=== PATIENT | male | born 1965 | race Caucasian/White ===

== ENCOUNTER 2016-06-02 11:22 | Inpatient (IN) | payer OTHER ==
[2016-06-02 16:34] VITALS: BMI 28.3
--- NOTE | 2016-06-02 16:56 | HP ---
CIWA Score - CIWA Score Nausea/Vomitin Muscle Tremors: 3 Anxiety: 3 Agitation: 3 Paroxysmal Sweats: 2 Orientation: 0-Oriented Tacttile Disturbances: 2-Mild Itch/Numbness/Burn Auditory Disturbances: 2-Mild Harshness/Frighten Visual Disturbances: 2-Mild Sensitivity Headache: 2-Mild CIWA-Ar Total Score: 22 Admission ROS BHS - HPI Chief Complaint: i need help to stop drinking alcohol Allergies/Adverse Reactions: Allergies Allergy/AdvReac Type Severity Reaction Status Date / Time No Known Allergies Allergy Verified 06/02/16 16:52 History of Present Illness: this 50 years old male with alcohol dependence,withdrawal symptom,last detox , last detox [facility] 08/26/15 to 08/29/15 syncope mmtp 20 mgs/day,[facility] last medicated today old mi s/p angioplasty with stent nicotine dependence anxiety and depression longest period of sobriety 3 years - Ebola screening Have you traveled outside of the country in the last 21 days: No Have you had contact with anyone from an Ebola affected area: No Have you been sick,other than usual withdrawal symptoms: No Do you have a fever: No - Review of Systems Constitutional: Loss of Appetite, Malaise, Night Sweats, Changes in sleep, Weakness EENT: reports: Nose Congestion Respiratory: reports: No Symptoms reported Cardiac: reports: Palpitations GI: reports: Diarrhea, Nausea, Vomiting, Abdominal cramping : reports: No Symptoms Reported Musculoskeletal: reports: Back Pain, Muscle Pain Integumentary: reports: Dryness Neuro: reports: Headache, Tremors Endocrine: reports: No Symptoms Reported Hematology: reports: No Symptoms Reported Psychiatric: reports: Anxious, Depressed Patient History - Patient Medical History Hx Anemia: No Hx Asthma: No Hx Chronic Obstructive Pulmonary Disease (COPD): No Hx Cancer: No Hx Cardiac Disorders: Yes (S/P ANGIOPLASTY WITH STENT AT [facility] 04/20) Hx Congestive Heart Failure: No Hx Hypertension: Yes (on meds.) Hx Hypercholesterolemia: Yes (ON MED) Hx Pacemaker: No HX Cerebrovascular Accident: No Hx Seizures: No Hx Dementia: No Hx Diabetes: No Hx Gastrointestinal Disorders: No Hx Liver Disease: No Hx Genitourinary Disorders: No Hx Sexually Transmitted Disorders: No Hx Renal Disease (ESRD): No Hx Thyroid Disease: No Hx Human Immunodeficiency Virus (HIV): No (05/20 NEGATIVE) Hx Hepatitis C: No Hx Depression: Yes (ANXIETY) Hx Suicide Attempt: No Hx Bipolar Disorder: No Hx Schizophrenia: No Other Medical History: NO SUICIDAL,NO HOMICIDAL - Patient Surgical History Past Surgical History: Yes Hx Neurologic Surgery: No Hx Cataract Extraction: No Hx Cardiac Surgery: Yes (STENTx 1 ) Hx Lung Surgery: Yes (CHEST TUBE R LUNG.SPONTANEOUS PNTX) Hx Breast Surgery: No Hx Breast Biopsy: No Hx Abdominal Surgery: No Hx Appendectomy: No Hx Cholecystectomy: No Hx Genitourinary Surgery: No Hx Section: No Hx Orthopedic Surgery: No Anesthesia Reaction: No - PPD History Previous Implant?: Yes Documented Results: Negative w/o proof Implanted On Prior [facility] Admission?: Yes Date: 04/05/15 Results: 0 mm PPD to be Administered?: Yes - Smoking Cessation Smoking history: Current every day smoker Have you smoked in the past 12 months: Yes Aproximately how many cigarettes per day: 10 Cigars Per Day: 0 Hx Chewing Tobacco Use: No Initiated information on smoking cessation: Yes 'Breaking Loose' booklet given: 06/02/16 - Substance & Tx. History Hx Alcohol Use: Yes Hx Substance Use: No Substance Use Type: Alcohol Hx Substance Use Treatment: Yes ([facility] 08/26/15 TO 08/29/15) Family Disease History - Family Disease History Family Disease History: Diabetes: Mother, Heart Disease: Father (CHF,), Brother (CAD) Admission Physical Exam S - Vital Signs Vital Signs: Vital Signs - 24 hr 06/02/16 16:32 Temperature 94.4 F L Pulse Rate 84 Respiratory 18 Rate Blood Pressure 142/90 - Physical General Appearance: Yes: Moderate Distress, Tremorous, Irritable, Sweating, Anxious HEENTM: Yes: Hearing grossly Normal, Normal ENT Inspection, Pharynx Normal Respiratory: Yes: Lungs Clear, Surgical Scar (S/P THORACOTOMY WITH CHEST TUBE) Neck: Yes: Supple, Trachea in good position Breast: Yes: Within Normal Limits Cardiology: Yes: Regular Rhythm, Regular Rate, S1, S2 Abdominal: Yes: Within Normal Limits, Normal Bowel Sounds, Non Tender, Flat, Soft Genitourinary: Yes: Within Normal Limits Musculoskeletal: Yes: Back pain, Muscle Pain Extremities: Yes: Within Normal Limits, Normal Range of Motion, Tremors, Other ( EDEMA OF LEGS) Neurological: Yes: broth setter II-XII NML intact, Fully Oriented, Alert, Motor Strength 5/5 Integumentary: Yes: Dry Lymphatic: Yes: Within Normal Limits - Diagnostic (1) Alcohol dependence with uncomplicated withdrawal Current Visit: No Status: Acute (2) Methadone maintenance therapy patient Current Visit: No Status: Acute (3) Nicotine dependence Current Visit: No Status: Acute Qualifiers: Nicotine product type: cigarettes Substance use status: uncomplicated Qualified Code(s): F17.210 - Nicotine dependence, cigarettes, uncomplicated (4) Spontaneous pneumothorax Current Visit: No Status: Acute (5) CAD (coronary artery disease) Current Visit: No Status: Chronic Qualifiers: Coronary Disease-Associated Artery/Lesion type: [place] artery [place] vs. transplanted heart: [place] heart Associated angina: angina presence unspecified Qualified Code(s): I25.10 - Atherosclerotic heart disease of [place] coronary artery without angina pectoris (6) S/P angioplasty with stent Current Visit: No Status: Chronic (7) GERD (gastroesophageal reflux disease) Current Visit: Yes Status: Acute Cleared for Admission S - Detox or Rehab [facility] Level of Care: Medically Managed Detox Regimen/Protocol: Librium [facility] Breath Alcohol Content Breath Alcohol Content: 0.170 Urine Drug Screen - Results Drug Screen Negative: No Urine Drug Screen Results: BZO-Benzodiazepines, MTD-Methadone
[2016-06-02] MEDS ORDERED: ACETAMINOPHEN 325 MG TABLET (FP) PO PRN (17:23)
[2016-06-02] MEDS ORDERED: MAGNESIUM HYDROX 2400MG/30ML ORAL SUSPENSION 30 ML CUP PO PRN (17:23)
[2016-06-02] MEDS ORDERED: guaiFENesin/D-METHORPHAN HB 10 ML UNIT-DOSE CUPS PO PRN (17:23)
[2016-06-02] MEDS ORDERED: LOPERAMIDE HCL 2 MG CAPSULE PO PRN (17:23)
[2016-06-02] MEDS ORDERED: MENTHOL/PHENOL 1 EACH UD MM PRN (17:23)
[2016-06-02] MEDS ORDERED: MAGNESIUM CITRATE 300 ML BOTTLE PO PRN (17:23)
[2016-06-02] MEDS ORDERED: chlordiazePOXIDE HCL 25 MG CAPSULE PO PRN (17:23)
[2016-06-02] MEDS ORDERED: IBUPROFEN 400 MG TABLET (FP) PO PRN (17:23)
[2016-06-02] MEDS ORDERED: MAG HYDROX/AL HYDROX/SIMETH 30 ML UNIT-DOSE CUP PO PRN (17:23)
[2016-06-02] MEDS ORDERED: P-EPHED 60MG/TRIPROLIDI 2.5MG TABLET PO PRN (17:23)
[2016-06-02] MEDS ORDERED: diphenhydrAMINE HCL 50 MG CAPSULE PO PRN (17:23)
[2016-06-02] MEDS: chlordiazePOXIDE HCL 25 MG CAPSULE PO ONE ×2 (18:09→18:12)
[2016-06-02] MEDS: NICOTINE 21 MG/24 HOURS TOPICAL PATCH TD SCH (18:23)
[2016-06-02] MEDS: chlordiazePOXIDE HCL 25 MG CAPSULE PO SCH (22:18)
[2016-06-02] MEDS: CAPTOPRIL 12.5 MG PO SCH (22:19)
[2016-06-02] MEDS: METOPROLOL TARTRATE 25 MG TABLET (FP) PO SCH (22:19)
[2016-06-02] MEDS: THIAMINE HCL 100 MG TABLET (FP) PO SCH (22:19)
[2016-06-02] MEDS: ATORVASTATIN CA 40 MG TABLET (FP) PO SCH (22:19)
[2016-06-03] MEDS: chlordiazePOXIDE HCL 25 MG CAPSULE PO SCH ×4 (06:21→22:10)
[2016-06-03] MEDS ORDERED: METHADONE HCL 10 MG TABLET PO ONE (08:41)
[2016-06-03] MEDS: PRENATAL VITAMINS W/ FOLIC ACID TABLET (FP) PO SCH (10:17)
[2016-06-03] MEDS: ASPIRIN 81 MG CHEWABLE TABLETS PO SCH (10:18)
[2016-06-03] MEDS: RANITIDINE HCL 150 MG TABLET (FP) PO SCH (10:18)
[2016-06-03] MEDS: METOPROLOL TARTRATE 25 MG TABLET (FP) PO SCH ×2 (10:18→22:10)
[2016-06-03] MEDS: CAPTOPRIL 12.5 MG PO SCH ×2 (10:19→22:11)
[2016-06-03] MEDS: PRASUGREL HCL 10 MG TAB PO SCH (10:19)
[2016-06-03] MEDS: NICOTINE 21 MG/24 HOURS TOPICAL PATCH TD SCH (10:20)
[2016-06-03 10:21] LABS: MCH 33.7 pg (25.7-33.7); MCHC 33.8 g/dl (32.0-35.9); MEAN CELL VOLUME 99.8 fl (80-96); MEAN PLT VOLUME 8.4 fl (7.5-11.1); PLATELET COUNT 183 K/MM3 (134-434); RDW 13.4 % (11.9-15.9); WHITE BLOOD COUNT 8.3 K/mm3 (4.0-10.0)
[2016-06-03 11:01] LABS: ALBUMIN 3.2 g/dl (3.4-5.0); ANION GAP 7 (8-16); CALCIUM 8.6 mg/dL (8.5-10.1); CO2 33 mmol/L (21-32); CREATININE 0.8 mg/dL (0.7-1.3); GLUCOSE,RANDOM 92 mg/dL (74-106); SGOT/AST 60 U/L (15-37); SGPT/ALT 43 U/L (12-78)
[2016-06-03 11:03] LABS: ALK PHOS 72 U/L (45-117); BILIRUBIN,TOTAL 0.5 mg/dL (0.2-1.0); TOT PROT 6.2 g/dl (6.4-8.2)
--- NOTE | 2016-06-03 11:11 | PN ---
S CIWA - CIWA Score Nausea/Vomitin Muscle Tremors: 3 Anxiety: 3 Agitation: 3 Paroxysmal Sweats: 3 Orientation: 0-Oriented Tacttile Disturbances: 1-Very Mild Itch/Numbness Auditory Disturbances: 0-None Visual Disturbances: 0-None Headache: 0-None Present CIWA-Ar Total Score: 16 BHS Progress Note (SOAP) Subjective: interrupted sleep, sweats, diarrhea, Objective: 06/03/16 11:10 Vital Signs Temperature 98.5 F 06/03/16 06:36 Pulse Rate 71 06/03/16 10:13 Respiratory Rate 16 06/03/16 10:13 Blood Pressure 126/90 06/03/16 10:13 O2 Sat by Pulse Oximetry (%) Laboratory Tests 06/03/16 07:00 WBC 8.3 RBC 4.17 Hgb 14.1 Hct 41.6 MCV 99.8 H MCHC 33.8 RDW 13.4 Plt Count 183 D MPV 8.4 pt aox3 in nad ambulating Assessment: 06/03/16 11:10 withdrawal sx's cad no cp or sob Plan: cont. detox increase fluids imodium prn
--- NOTE | 2016-06-03 15:42 | CONSULT ---
[facility] Psychiatric Consult - Data Date of interview: 06/03/16 Admission source: [facility] Identifying data: Another admission to [facility] for this 50 y/o male seeking detox treatment for alcohol and opioid dependence.Patient is ,a father of one,domiciled,unemployed and supported on SSI benefits. Substance Abuse History: - Smoking Cessation. Smoking history: Current every day smoker. Have you smoked in the past 12 months: Yes. Aproximately how many cigarettes per day: 10. Cigars Per Day: 0. Hx Chewing Tobacco Use: No. Initiated information on smoking cessation: Yes. 'Breaking Loose' booklet given : 06/02/16. - Substance & Tx. History. Hx Alcohol Use: Yes. Hx Substance Use : No. Substance Use Type: Alcohol. Hx Substance Use Treatment: Yes ([facility] 08/25 TO 08/29/15). Confirmed by patient. Medical History: History of myocardial infarction in 2006 (angioplasty with stents),spontaneous pneumothorax in 2013,coronary artery disease and hypertension. Psychiatric History: No history of psychiatric hospitalizations.Prescribed paxil 20 mg/day by his primary care physician (declined to maintain contact with his psychiatrist).Mr Avila attends a MMTP program at [facility] (20 mg/day).He indicates that he is enrolled in a new drug program, [facility] located in [place], [place].No history of suicide attempts. Physical/Sexual Abuse/Trauma History: Patient denies. Additional Comment: Urine Drug Screen Results: BZO-Benzodiazepines, MTD- Methadone.Noted. Mental Status Exam - Mental Status Exam Alert and Oriented to: Time, Place, Person Cognitive Function: Good Patient Appearance: Well Groomed Mood: Hopeful, Euthymic Affect: Appropriate, Normal Range Patient Behavior: Appropriate, Cooperative Speech Pattern: Clear, Appropriate Voice Loudness: Normal Thought Process: Goal Oriented Thought Disorder: Not Present Hallucinations: Denies Suicidal Ideation: Denies Homicidal Ideation: Denies Insight/Judgement: Fair Sleep: Poorly, Difficulty falling asleep Appetite: Good Muscle strength/Tone: Normal Gait/Station: Normal Psychiatric Findings - Problem List ([place] 1, 2,3) (1) Alcohol dependence with uncomplicated withdrawal Current Visit: Yes Status: Acute (2) Opioid dependence with withdrawal Current Visit: Yes Status: Acute (3) Opioid dependence on agonist therapy Current Visit: Yes Status: Acute (4) Nicotine dependence Current Visit: Yes Status: Acute Qualifiers: Nicotine product type: cigarettes Substance use status: uncomplicated Qualified Code(s): F17.210 - Nicotine dependence, cigarettes, uncomplicated (5) Substance induced mood disorder Current Visit: Yes Status: Acute (6) MDD (major depressive disorder) Current Visit: Yes Status: Chronic (7) GERD (gastroesophageal reflux disease) Current Visit: Yes Status: Chronic (8) CAD (coronary artery disease) Current Visit: Yes Status: Chronic Qualifiers: Coronary Disease-Associated Artery/Lesion type: [place] artery [place] vs. transplanted heart: [place] heart Associated angina: angina presence unspecified Qualified Code(s): I25.10 - Atherosclerotic heart disease of [place] coronary artery without angina pectoris (9) S/P angioplasty with stent Current Visit: Yes Status: Chronic (10) Insomnia Current Visit: Yes Status: Acute - Initial Treatment Plan Initial Treatment Plan: Psychoeducation.Detoxification.Zolpidem 5 mg po hs prn.Patient made aware of risk of parasomnias/sedation in the morning.He agrees with this careplan.
[2016-06-03] MEDS: hydrOXYzine PAMOATE 50 MG CAPSULE (FP) PO PRN ×2 (17:24→22:14)
[2016-06-03 20:24] LABS: URINE APPEARANCE CLEAR; URINE BILIRUBIN NEGATIVE (NEGATIVE); URINE BLOOD NEGATIVE (NEGATIVE); URINE COLOR YELLOW; URINE GLUCOSE (UA) NEGATIVE (NEGATIVE); URINE KETONE NEGATIVE (NEGATIVE); URINE LEUK ESTERASE NEGATIVE (NEGATIVE); URINE NITRITE NEGATIVE (NEGATIVE); URINE PROTEIN NEGATIVE (NEGATIVE); URINE UROBILINOGEN NEGATIVE E.U./dl (0.2-1.0)
[2016-06-03] MEDS: ATORVASTATIN CA 40 MG TABLET (FP) PO SCH (22:10)
[2016-06-03] MEDS: THIAMINE HCL 100 MG TABLET (FP) PO SCH (22:10)
[2016-06-04] MEDS: chlordiazePOXIDE HCL 25 MG CAPSULE PO SCH ×3 (05:21→17:00)
[2016-06-04] MEDS: METHADONE HCL 10 MG TABLET PO SCH (05:22)
[2016-06-04] MEDS ORDERED: NAPHAZOLINE/PHENIRAMINE OPHTHALMIC 15 ML BOTTLE OU PRN (08:35)
--- NOTE | 2016-06-04 10:23 | PN ---
S CIWA - CIWA Score Nausea/Vomitin Muscle Tremors: 3 Anxiety: 2 Agitation: 2 Paroxysmal Sweats: 1-Minimal Palms Moist Orientation: 0-Oriented Tacttile Disturbances: 1-Very Mild Itch/Numbness Auditory Disturbances: 1-Very Mild Visual Disturbances: 1-Very Mild Sensitivity Headache: 2-Mild CIWA-Ar Total Score: 16 S Progress Note (SOAP) Subjective: ALERT,IRRITABLE,ANXIOUS,INTERRUPTED SLEEP,TREMOR,PAIN IN THE BODY Objective: 06/04/16 10:22 Vital Signs Temperature 98.2 F 06/04/16 10:13 Pulse Rate 71 06/04/16 10:13 Respiratory Rate 18 06/04/16 10:13 Blood Pressure 118/79 06/04/16 10:13 O2 Sat by Pulse Oximetry (%) Laboratory Last Values WBC 8.3 K/mm3 (4.0-10.0) 06/03/16 07:00 RBC 4.17 M/mm3 (4.00-5.60) 06/03/16 07:00 Hgb 14.1 GM/dL (11.7-16.9) 06/03/16 07:00 Hct 41.6 % (35.4-49) 06/03/16 07:00 MCV 99.8 fl (80-96) H 06/03/16 07:00 MCHC 33.8 g/dl (32.0-35.9) 06/03/16 07:00 RDW 13.4 % (11.9-15.9) 06/03/16 07:00 Plt Count 183 K/MM3 (134-434) D 06/03/16 07:00 MPV 8.4 fl (7.5-11.1) 06/03/16 07:00 Sodium 144 mmol/L (136-145) 06/03/16 07:00 Potassium 4.5 mmol/L (3.5-5.1) D 06/03/16 07:00 Chloride 104 mmol/L (98-107) 06/03/16 07:00 Carbon Dioxide 33 mmol/L (21-32) H 06/03/16 07:00 Anion Gap 7 (8-16) L 06/03/16 07:00 BUN 11 mg/dL (7-18) D 06/03/16 07:00 Creatinine 0.8 mg/dL (0.7-1.3) 06/03/16 07:00 Creat Clearance w eGFR > 60 (>60) 06/03/16 07:00 Random Glucose 92 mg/dL (74-106) 06/03/16 07:00 Calcium 8.6 mg/dL (8.5-10.1) 06/03/16 07:00 Total Bilirubin 0.5 mg/dL (0.2-1.0) D 06/03/16 07:00 AST 60 U/L (15-37) H D 06/03/16 07:00 ALT 43 U/L (12-78) D 06/03/16 07:00 Alkaline Phosphatase 72 U/L (45-117) 06/03/16 07:00 Total Protein 6.2 g/dl (6.4-8.2) L 06/03/16 07:00 Albumin 3.2 g/dl (3.4-5.0) L 06/03/16 07:00 Urine Color Yellow 06/03/16 19:30 Urine Appearance Clear 06/03/16 19:30 Urine pH 7.0 (5.0-8.0) D 06/03/16 19:30 Ur Specific [place] 1.021 (1.001-1.035) 06/03/16 19:30 Urine Protein Negative (NEGATIVE) 06/03/16 19:30 Urine Glucose (UA) Negative (NEGATIVE) 06/03/16 19:30 Urine Ketones Negative (NEGATIVE) 06/03/16 19:30 Urine Blood Negative (NEGATIVE) 06/03/16 19:30 Urine Nitrite Negative (NEGATIVE) 06/03/16 19:30 Urine Bilirubin Negative (NEGATIVE) 06/03/16 19:30 Urine Urobilinogen Negative E.U./dl (0.2-1.0) 06/03/16 19:30 Ur Leukocyte Esterase Negative (NEGATIVE) 06/03/16 19:30 RPR Titer Nonreactive (NONREACTIVE) 06/03/16 07:00 Assessment: 06/04/16 10:23 WITHDRAWAL SYMPTOM Plan: CONTINUE DETOX
[2016-06-04] MEDS: METOPROLOL TARTRATE 25 MG TABLET (FP) PO SCH ×2 (10:25→22:34)
[2016-06-04] MEDS: PRENATAL VITAMINS W/ FOLIC ACID TABLET (FP) PO SCH (10:25)
[2016-06-04] MEDS: PARoxetine HCL 20 MG TABLET (FP) PO SCH (10:25)
[2016-06-04] MEDS: CAPTOPRIL 12.5 MG PO SCH ×2 (10:26→22:35)
[2016-06-04] MEDS: ASPIRIN 81 MG CHEWABLE TABLETS PO SCH (10:26)
[2016-06-04] MEDS: RANITIDINE HCL 150 MG TABLET (FP) PO SCH (10:27)
[2016-06-04] MEDS: NICOTINE 21 MG/24 HOURS TOPICAL PATCH TD SCH (10:30)
--- NOTE | 2016-06-04 11:58 | EKG ---
Test Reason : Blood Pressure : / mmHG Vent. Rate : 087 BPM Atrial Rate : 087 BPM P-R Int : 136 ms QRS Dur : 100 ms QT Int : 382 ms P-R-T Axes : 035 038 047 degrees QTc Int : 459 ms NORMAL SINUS RHYTHM POOR DATA QUALITY, INTERPRETATION MAY BE ADVERSELY AFFECTED Confirmed by SIMON CAMPBELL MD ([id number]) on 06/04/2016 11:58:15 AM Referred By: Miles Lazaro Confirmed By:SIMON CAMPBELL MD
[2016-06-04] MEDS: ARTIFICIAL TEARS (POLYVINYL ALCOHOL 1.4%) OPTH DROPS OU SCH ×2 (13:14→22:35)
[2016-06-04] MEDS: PRASUGREL HCL 10 MG TAB PO SCH (14:37)
[2016-06-04] MEDS: chlordiazePOXIDE 5 MG CAPSULE PO SCH (22:34)
[2016-06-04] MEDS: THIAMINE HCL 100 MG TABLET (FP) PO SCH (22:34)
[2016-06-04] MEDS: ATORVASTATIN CA 40 MG TABLET (FP) PO SCH (22:34)
[2016-06-04] MEDS: hydrOXYzine PAMOATE 50 MG CAPSULE (FP) PO PRN (22:38)
[2016-06-05] MEDS: hydrOXYzine PAMOATE 50 MG CAPSULE (FP) PO PRN (03:25)
[2016-06-05] MEDS: chlordiazePOXIDE 5 MG CAPSULE PO SCH ×3 (05:12→17:40)
[2016-06-05] MEDS: METHADONE HCL 10 MG TABLET PO SCH (05:13)
--- NOTE | 2016-06-05 09:52 | PN ---
S Progress Note (SOAP) Subjective: ALERT,IRRITABLE,INTERRUPTED SLEEP Objective: 06/05/16 09:51 Vital Signs Temperature 98.1 F 06/05/16 09:50 Pulse Rate 71 06/05/16 09:50 Respiratory Rate 16 06/05/16 09:50 Blood Pressure 118/72 06/05/16 09:50 O2 Sat by Pulse Oximetry (%) Assessment: 06/05/16 09:52 WITHDRAWAL SYMPTOM Plan: CONTINUE DETOX,DISCHARGE IN AM
[2016-06-05] MEDS: RANITIDINE HCL 150 MG TABLET (FP) PO SCH (10:15)
[2016-06-05] MEDS: METOPROLOL TARTRATE 25 MG TABLET (FP) PO SCH ×2 (10:15→22:20)
[2016-06-05] MEDS: PARoxetine HCL 20 MG TABLET (FP) PO SCH (10:15)
[2016-06-05] MEDS: PRENATAL VITAMINS W/ FOLIC ACID TABLET (FP) PO SCH (10:15)
[2016-06-05] MEDS: ASPIRIN 81 MG CHEWABLE TABLETS PO SCH (10:15)
[2016-06-05] MEDS: PRASUGREL HCL 10 MG TAB PO SCH (10:16)
[2016-06-05] MEDS: NICOTINE 21 MG/24 HOURS TOPICAL PATCH TD SCH (10:16)
[2016-06-05] MEDS: CAPTOPRIL 12.5 MG PO SCH ×2 (10:16→22:20)
[2016-06-05] MEDS: ARTIFICIAL TEARS (POLYVINYL ALCOHOL 1.4%) OPTH DROPS OU SCH ×2 (10:17→22:57)
[2016-06-05] MEDS: chlordiazePOXIDE HCL 10 MG CAPSULE PO SCH (22:20)
[2016-06-05] MEDS: ATORVASTATIN CA 40 MG TABLET (FP) PO SCH (22:20)
[2016-06-05] MEDS: THIAMINE HCL 100 MG TABLET (FP) PO SCH (22:22)
[2016-06-06] MEDS: hydrOXYzine PAMOATE 50 MG CAPSULE (FP) PO PRN (01:36)
[2016-06-06] MEDS: chlordiazePOXIDE HCL 10 MG CAPSULE PO SCH (04:35)
[2016-06-06] MEDS: METHADONE HCL 10 MG TABLET PO SCH (05:16)
[2016-06-06 05:46] VITALS: BP 109/63; PULSE 63; TEMP 96.1
--- NOTE | 2016-06-06 08:41 | PN ---
S Progress Note (SOAP) Subjective: ALERT,NO COMPLAINT Objective: 06/06/16 08:40 Vital Signs Temperature 96.1 F L 06/06/16 05:45 Pulse Rate 63 06/06/16 05:45 Respiratory Rate 18 06/06/16 05:45 Blood Pressure 109/63 06/06/16 05:45 O2 Sat by Pulse Oximetry (%) Assessment: 06/06/16 08:40 DETOX COMPLETED,NO WITHDRAWAL SYMPTOM Plan: DISCHARGE TODAY,FOLLOW UP WITH AFTER CARE PROGRAM ARRANGEMENT
--- NOTE | 2016-06-06 08:46 | DS ---
[facility] Detox Discharge Summary Admission Date: 06/02/16 Discharge Date: 06/06/16 - History Present History: Alcohol Dependence, MMTP Additional Comments: FOLLOW UP WITH AFTER CARE PROGRAM ARRANGEMENT AND PMD FOR MEDICAL PROBLEM Pertinent Past History: GERD CAD S/P ANGIOPLASTY WITH STENT SPONTANEOUS PNEUMOTHORAX RIGHT - Physical Exam Results Vital Signs: Vital Signs Temperature 96.1 F L 06/06/16 05:45 Pulse Rate 63 06/06/16 05:45 Respiratory Rate 18 06/06/16 05:45 Blood Pressure 109/63 06/06/16 05:45 O2 Sat by Pulse Oximetry (%) - Treatment Hospital Course: Detox Protocol Followed, Detoxed Safely, Responded well, Discharged Condition Good, Rehab Referral Accepted Patient has Accepted a Rehab Referral to: [facility] - Medication Discharge Medications: Ambulatory Orders Aspirin [ASA -] 81 mg PO DAILY 04/03/15 Atorvastatin Ca [Lipitor] 40 mg PO HS 04/03/15 Captopril 12.5 mg PO BID 04/03/15 Metoprolol Tartrate [Lopressor -] 25 mg PO BID 04/03/15 Paroxetine HCl [Paxil -] 20 mg PO DAILY #30 tablet 04/04/15 Armodafinil [Nuvigil] 200 mg PO DAILY 06/02/16 Stanley-3S/Dha/Epa/Fish Oil [Fish Oil [place]-3 Softgel] 1 each PO DAILY 06/02/16 Prasugrel HCl [Effient] 10 mg PO DAILY 06/02/16 Ranitidine [Zantac -] 150 mg PO DAILY 06/02/16 Testosterone [Androgel] 25 mg TD DAILY 06/02/16 Vitamin B Complex [Super B-50 Complex] 1 each PO DAILY 06/02/16 Paroxetine HCl [Paxil] 20 mg PO DAILY #30 tablet 06/03/16 - Diagnosis (1) Alcohol dependence with uncomplicated withdrawal Current Visit: Yes Status: Acute (2) Methadone maintenance therapy patient Current Visit: No Status: Acute (3) Nicotine dependence Current Visit: Yes Status: Acute Qualifiers: Nicotine product type: cigarettes Substance use status: uncomplicated Qualified Code(s): F17.210 - Nicotine dependence, cigarettes, uncomplicated (4) Spontaneous pneumothorax Current Visit: No Status: Acute (5) CAD (coronary artery disease) Current Visit: Yes Status: Chronic Qualifiers: Coronary Disease-Associated Artery/Lesion type: [place] artery [place] vs. transplanted heart: [place] heart Associated angina: angina presence unspecified Qualified Code(s): I25.10 - Atherosclerotic heart disease of [place] coronary artery without angina pectoris (6) S/P angioplasty with stent Current Visit: Yes Status: Chronic (7) GERD (gastroesophageal reflux disease) Current Visit: Yes Status: Chronic - AMA Did Patient Leave Against Medical Advice: No
[2016-06-06] MEDS: ASPIRIN 81 MG CHEWABLE TABLETS PO SCH (09:18)
[2016-06-06] MEDS: ARTIFICIAL TEARS (POLYVINYL ALCOHOL 1.4%) OPTH DROPS OU SCH (09:18)
[2016-06-06] MEDS: PRENATAL VITAMINS W/ FOLIC ACID TABLET (FP) PO SCH (09:19)
[2016-06-06] MEDS: CAPTOPRIL 12.5 MG PO SCH (09:19)
[2016-06-06] MEDS: PRASUGREL HCL 10 MG TAB PO SCH (09:19)
[2016-06-06] MEDS: PARoxetine HCL 20 MG TABLET (FP) PO SCH (09:19)
[2016-06-06] MEDS: RANITIDINE HCL 150 MG TABLET (FP) PO SCH (09:19)
[2016-06-06] MEDS: METOPROLOL TARTRATE 25 MG TABLET (FP) PO SCH (09:19)
[2016-06-06] MEDS: NICOTINE 21 MG/24 HOURS TOPICAL PATCH TD SCH (09:23)
== END 2016-06-06 09:30 | disposition home or self-care (01) | DRG 773 ==
LOC: YASAS 11:22 → Y6N 17:32
PROVIDERS: ADMIT Internal Medicine Addiction Medicine; ATTEND Internal Medicine Addiction Medicine
PROC: HZ2ZZZZ Detoxification Services for Substance Abuse Treatment (ICD-10-PCS; principal; 2016-06-02)
DX: F10.230 Alcohol dependence with withdrawal, uncomplicated (principal); F11.20 Opioid dependence, uncomplicated; F17.210 Nicotine dependence, cigarettes, uncomplicated; F33.9 Major depressive disorder, recurrent, unspecified; F19.24 Other psychoactive substance dependence with psychoactive substance-induced mood disorder; I10 Essential (primary) hypertension; I25.2 Old myocardial infarction; I25.10 Atherosclerotic heart disease of native coronary artery without angina pectoris; K21.9 Gastro-esophageal reflux disease without esophagitis; G47.00 Insomnia, unspecified; Z95.5 Presence of coronary angioplasty implant and graft; Z87.09 Personal history of other diseases of the respiratory system
CPT/HCPCS: 36415; 80053; 81003; 85027; 86593; 93005; 93010

== ENCOUNTER 2016-06-09 13:58 | Inpatient (IN) | payer OTHER ==
[2016-06-09 15:56] VITALS: BMI 28.9
--- NOTE | 2016-06-09 17:40 | HP ---
[facility] Rehab Assess/Revision - Admission History Admitted to Rehab from: [facility] [place] Date of Admission to Rehab: 06/09/16 - Vital signs Vital Signs: Vital Signs Period Temp Pulse Resp BP Sys/Finn Pulse Ox Last 24 Hr 96.0 F 83 20 133/75 - Findings Detox History & Physical reviewed: Yes Concur with findings: Yes Comments/Additional Findings: Hx. of CAD on medications
[2016-06-09] MEDS ORDERED: MENTHOL/PHENOL 1 EACH UD MM PRN (17:41)
[2016-06-09] MEDS ORDERED: ACETAMINOPHEN 325 MG TABLET (FP) PO PRN (17:41)
[2016-06-09] MEDS ORDERED: MAGNESIUM CITRATE 300 ML BOTTLE PO PRN (17:41)
[2016-06-09] MEDS ORDERED: guaiFENesin/D-METHORPHAN HB 10 ML UNIT-DOSE CUPS PO PRN (17:41)
[2016-06-09] MEDS ORDERED: diphenhydrAMINE HCL 50 MG CAPSULE PO PRN (17:41)
[2016-06-09] MEDS ORDERED: P-EPHED 60MG/TRIPROLIDI 2.5MG TABLET PO PRN (17:41)
[2016-06-09] MEDS ORDERED: MAG HYDROX/AL HYDROX/SIMETH 30 ML UNIT-DOSE CUP PO PRN (17:41)
[2016-06-09] MEDS ORDERED: LOPERAMIDE HCL 2 MG CAPSULE PO PRN (17:41)
[2016-06-09] MEDS ORDERED: MAGNESIUM HYDROX 2400MG/30ML ORAL SUSPENSION 30 ML CUP PO PRN (17:41)
[2016-06-09] MEDS ORDERED: NICOTINE POLACRILEX 2 MG GUM BUC PRN (17:41)
[2016-06-09] MEDS ORDERED: RANITIDINE HCL 150 MG TABLET (FP) PO SCH (18:00)
[2016-06-09] MEDS ORDERED: LISINOPRIL 5 MG TABLET (FP) PO SCH (18:45)
[2016-06-09] MEDS: PRASUGREL HCL 10 MG TAB PO SCH (22:23)
[2016-06-09] MEDS: LISINOPRIL 5 MG TABLET (FP) PO SCH (22:25)
[2016-06-09] MEDS: THIAMINE HCL 100 MG TABLET (FP) PO SCH (22:26)
[2016-06-09] MEDS: ATORVASTATIN CA 40 MG TABLET (FP) PO SCH (22:27)
[2016-06-09] MEDS: NICOTINE 21 MG/24 HOURS TOPICAL PATCH TD SCH (22:28)
[2016-06-09] MEDS: RANITIDINE HCL 150 MG TABLET (FP) PO SCH (22:45)
[2016-06-09] MEDS: METOPROLOL TARTRATE 25 MG TABLET (FP) PO SCH (22:46)
[2016-06-09] MEDS ORDERED: traZODone HCL 100 MG TABLET (FP) PO SCH (23:30)
[2016-06-10] MEDS: METHADONE HCL 10 MG TABLET PO SCH (07:59)
[2016-06-10] MEDS ORDERED: PT OWN MED DRAWER 7, Y5N ONE ×5 (08:58→22:50)
[2016-06-10] MEDS: PRENATAL VITAMINS W/ FOLIC ACID TABLET (FP) PO SCH (10:20)
[2016-06-10] MEDS: ASPIRIN 81 MG CHEWABLE TABLETS PO SCH (10:20)
[2016-06-10] MEDS: RANITIDINE HCL 150 MG TABLET (FP) PO SCH (10:20)
[2016-06-10] MEDS: PRASUGREL HCL 10 MG TAB PO SCH (10:21)
[2016-06-10] MEDS: NICOTINE 21 MG/24 HOURS TOPICAL PATCH TD SCH (10:23)
[2016-06-10] MEDS: METOPROLOL TARTRATE 25 MG TABLET (FP) PO SCH ×2 (10:37→22:41)
[2016-06-10] MEDS: LISINOPRIL 5 MG TABLET (FP) PO SCH (10:38)
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
[2016-06-10] MEDS: PARoxetine HCL 20 MG TABLET (FP) PO SCH (14:18)
[2016-06-10] MEDS: TETRAHYDROZOLINE HCL 1 DROP DROPS OU SCH ×3 (14:20→22:43)
[2016-06-10] MEDS: ATORVASTATIN CA 40 MG TABLET (FP) PO SCH (22:40)
[2016-06-10] MEDS: THIAMINE HCL 100 MG TABLET (FP) PO SCH (22:40)
[2016-06-10] MEDS: traZODone HCL 50 MG TABLET (FP) PO SCH (22:43)
[2016-06-11] MEDS: METHADONE HCL 10 MG TABLET PO SCH (06:17)
[2016-06-11] MEDS ORDERED: PT OWN MED DRAWER 7, Y5N ONE ×6 (08:39→19:20)
[2016-06-11] MEDS: METOPROLOL TARTRATE 25 MG TABLET (FP) PO SCH ×2 (10:12→21:38)
[2016-06-11] MEDS: ASPIRIN 81 MG CHEWABLE TABLETS PO SCH (10:12)
[2016-06-11] MEDS: PRENATAL VITAMINS W/ FOLIC ACID TABLET (FP) PO SCH (10:12)
[2016-06-11] MEDS: LISINOPRIL 5 MG TABLET (FP) PO SCH (10:13)
[2016-06-11] MEDS: PRASUGREL HCL 10 MG TAB PO SCH (10:13)
[2016-06-11] MEDS: TETRAHYDROZOLINE HCL 1 DROP DROPS OU SCH ×4 (10:13→21:39)
[2016-06-11] MEDS: PARoxetine HCL 20 MG TABLET (FP) PO SCH (10:13)
[2016-06-11] MEDS: RANITIDINE HCL 150 MG TABLET (FP) PO SCH (10:14)
[2016-06-11] MEDS: NICOTINE 21 MG/24 HOURS TOPICAL PATCH TD SCH (10:15)
[2016-06-11] MEDS: THIAMINE HCL 100 MG TABLET (FP) PO SCH (21:37)
[2016-06-11] MEDS: ATORVASTATIN CA 40 MG TABLET (FP) PO SCH (21:38)
[2016-06-11] MEDS: traZODone HCL 50 MG TABLET (FP) PO SCH (21:39)
[2016-06-11] MEDS: IBUPROFEN 400 MG TABLET (FP) PO PRN (21:40)
[2016-06-12] MEDS: METHADONE HCL 10 MG TABLET PO SCH (06:39)
[2016-06-12] MEDS: PRASUGREL HCL 10 MG TAB PO SCH (10:17)
[2016-06-12] MEDS: LISINOPRIL 5 MG TABLET (FP) PO SCH (10:17)
[2016-06-12] MEDS: METOPROLOL TARTRATE 25 MG TABLET (FP) PO SCH ×2 (10:17→22:09)
[2016-06-12] MEDS: PARoxetine HCL 20 MG TABLET (FP) PO SCH (10:17)
[2016-06-12] MEDS: ASPIRIN 81 MG CHEWABLE TABLETS PO SCH (10:17)
[2016-06-12] MEDS: RANITIDINE HCL 150 MG TABLET (FP) PO SCH (10:17)
[2016-06-12] MEDS: PRENATAL VITAMINS W/ FOLIC ACID TABLET (FP) PO SCH (10:18)
[2016-06-12] MEDS: NICOTINE 21 MG/24 HOURS TOPICAL PATCH TD SCH (10:20)
[2016-06-12] MEDS: TETRAHYDROZOLINE HCL 1 DROP DROPS OU SCH ×4 (10:21→23:18)
[2016-06-12] MEDS: IBUPROFEN 400 MG TABLET (FP) PO PRN (20:16)
[2016-06-12] MEDS: ATORVASTATIN CA 40 MG TABLET (FP) PO SCH (22:09)
[2016-06-12] MEDS: traZODone HCL 50 MG TABLET (FP) PO SCH (22:11)
[2016-06-12] MEDS: THIAMINE HCL 100 MG TABLET (FP) PO SCH (23:18)
[2016-06-13] MEDS: METHADONE HCL 10 MG TABLET PO SCH (06:52)
[2016-06-13] MEDS ORDERED: PT OWN MED DRAWER 7, Y5N ONE ×2 (08:47→13:48)
[2016-06-13] MEDS: PRENATAL VITAMINS W/ FOLIC ACID TABLET (FP) PO SCH (10:16)
[2016-06-13] MEDS: LISINOPRIL 5 MG TABLET (FP) PO SCH (10:16)
[2016-06-13] MEDS: PARoxetine HCL 20 MG TABLET (FP) PO SCH (10:16)
[2016-06-13] MEDS: RANITIDINE HCL 150 MG TABLET (FP) PO SCH (10:16)
[2016-06-13] MEDS: ASPIRIN 81 MG CHEWABLE TABLETS PO SCH (10:16)
[2016-06-13] MEDS: METOPROLOL TARTRATE 25 MG TABLET (FP) PO SCH ×2 (10:16→22:12)
[2016-06-13] MEDS: NICOTINE 21 MG/24 HOURS TOPICAL PATCH TD SCH (10:17)
[2016-06-13] MEDS: PRASUGREL HCL 10 MG TAB PO SCH (10:17)
[2016-06-13] MEDS: TETRAHYDROZOLINE HCL 1 DROP DROPS OU SCH ×3 (10:17→23:16)
[2016-06-13] MEDS: IBUPROFEN 400 MG TABLET (FP) PO PRN ×2 (10:24→22:12)
[2016-06-13] MEDS: ATORVASTATIN CA 40 MG TABLET (FP) PO SCH (22:12)
[2016-06-13] MEDS: traZODone HCL 50 MG TABLET (FP) PO SCH (23:16)
[2016-06-13] MEDS: THIAMINE HCL 100 MG TABLET (FP) PO SCH (23:17)
[2016-06-14] MEDS: METHADONE HCL 10 MG TABLET PO SCH (06:20)
[2016-06-14] MEDS ORDERED: PT OWN MED DRAWER 7, Y5N ONE ×2 (08:56→15:27)
[2016-06-14] MEDS: PRENATAL VITAMINS W/ FOLIC ACID TABLET (FP) PO SCH (09:07)
[2016-06-14] MEDS: ASPIRIN 81 MG CHEWABLE TABLETS PO SCH (09:08)
[2016-06-14] MEDS: TETRAHYDROZOLINE HCL 1 DROP DROPS OU SCH ×2 (09:08→14:10)
[2016-06-14] MEDS: LISINOPRIL 5 MG TABLET (FP) PO SCH (09:10)
[2016-06-14] MEDS: PRASUGREL HCL 10 MG TAB PO SCH (09:10)
[2016-06-14] MEDS: PARoxetine HCL 20 MG TABLET (FP) PO SCH (09:24)
[2016-06-14] MEDS: METOPROLOL TARTRATE 25 MG TABLET (FP) PO SCH ×2 (09:25→21:42)
[2016-06-14] MEDS: NICOTINE 21 MG/24 HOURS TOPICAL PATCH TD SCH (10:11)
[2016-06-14] MEDS: RANITIDINE HCL 150 MG TABLET (FP) PO SCH (10:12)
--- NOTE | 2016-06-14 13:31 | PN ---
Psychiatric Progress Note Vital Signs: Vital Signs Period Temp Pulse Resp BP Sys/Finn Pulse Ox Last 24 Hr 97.4 F 56-65 18-18 94-121/60-87 Date of Session: 06/14/16 Chief Complaint:: "I feel depressed" HPI: Patient addressing Alcohol Dependence comorbid with OPoid Dependence on Agonist Therapy, Nicotine Dependence and Depression and anxiety ROS: GERD, HTN, S/P spontaneous pneumothorax Current Medications: Active Medications Generic Name Dose Route Start Last Admin Trade Name Freq PRN Reason Stop Dose Admin Acetaminophen 650 mg 06/09/16 17:41 06/13/16 13:48 Tylenol - PO 650 mg Q4H PRN Administration FEVER OR PAIN Al Hydroxide/Mg Hydroxide 30 ml 06/09/16 17:41 Mylanta Oral Suspension - PO Q6H PRN DYSPEPSIA Aspirin 81 mg 06/10/16 10:00 06/14/16 09:08 Asa - PO 81 mg DAILY YUE Administration Atorvastatin Calcium 40 mg 06/09/16 22:00 06/13/16 22:12 Lipitor - PO 40 mg HS YUE Administration Diphenhydramine HCl 50 mg 06/09/16 17:41 Benadryl - PO HSMR1 PRN FOR ITCHING Eucalyptus/Menthol/Phenol/Sorbitol 1 each 06/09/16 17:41 Cepastat Lozenge - MM Q4H PRN SORE THROAT Guaifenesin 10 ml 06/09/16 17:41 Robitussin Dm - PO Q6H PRN COUGH Ibuprofen 400 mg 06/09/16 17:41 06/13/16 22:12 Motrin - PO 400 mg Q6H PRN Administration PAIN Lisinopril 5 mg 06/09/16 22:30 06/14/16 09:10 Prinivil PO 5 mg DAILY YUE Administration Loperamide HCl 4 mg 06/09/16 17:41 Imodium - PO Q6H PRN DIARRHEA Magnesium Hydroxide 30 ml 06/09/16 17:41 Milk Of Magnesia - PO DAILY PRN CONSTIPATION Methadone HCl 20 mg 06/10/16 07:45 06/14/16 06:20 Dolophine - PO 20 mg DAILY@0600 YUE Administration Metoprolol Tartrate 25 mg 06/09/16 22:00 06/14/16 09:25 Lopressor - PO 25 mg BID YUE Administration Nicotine 21 mg 06/09/16 18:00 06/13/16 10:17 Nicoderm Patch - TD 21 mg DAILY YUE Administration Nicotine Polacrilex 4 mg 06/09/16 17:41 Nicorette Gum - BUC Q2H PRN NICOTINE REPLACEMENT RX Paroxetine HCl 30 mg 06/15/16 10:00 Paxil - PO DAILY YUE Prasugrel 10 mg 06/09/16 18:00 06/14/16 09:10 Effient - PO 10 mg DAILY YUE Administration Multivit/Folic Acid/Iron 1 tab 06/10/16 10:00 06/14/16 09:07 Vitamins (Sjr) - PO 1 tab DAILY YUE Administration Pseudoephedrine/Triprolidine 1 combo 06/09/16 17:41 Actifed - PO TID PRN NASAL CONGESTION Ranitidine HCl 150 mg 06/09/16 22:30 06/13/16 10:16 Zantac - PO 150 mg DAILY YUE Administration Tetrahydrozoline HCl 1 drop 06/10/16 14:00 06/14/16 09:08 Visine - OU 1 drop QID YUE Administration Thiamine HCl 100 mg 06/09/16 22:00 06/13/16 23:17 Vitamin B1 - PO Not Given HS YUE Trazodone HCl 25 mg 06/10/16 22:00 06/13/16 23:16 Desyrel - PO Not Given HS YUE Medication(s) Change(s): Increase Paxil dosage to 30 mg po daily Current Side Effect: No Lab tests ordered: Yes Lab tests reviewed: Yes Provider note:: Patient reports that he has been feeling depressed. Claims that he feels sad all the time, he has no interest in doing anything , no energy but does not feel suicidal. Told publications writer that he has been on Paxil 20 mg for 15 years and feels like he needs a change or increase in dosage. He was brought to his attention that there things that he does that negate the effect of the medication. He was told that increasing medication alone will not solve the issue. Total face to face time:: 25 Mental Status Exam - Mental Status Exam Alert and Oriented to: Time, Place, Person Cognitive Function: Fair Patient Appearance: Well Groomed Mood: Depressed Affect: Appropriate Patient Behavior: Cooperative Speech Pattern: Clear Voice Loudness: Normal Thought Process: Intact Thought Disorder: Not Present Hallucinations: Denies Suicidal Ideation: Denies Homicidal Ideation: Denies Insight/Judgement: Fair Sleep: Fair Appetite: Good Muscle strength/Tone: Rigidity Gait/Station: Normal Psychiatric Treatment Plan - Problem List (1) Alcohol dependence with uncomplicated withdrawal Current Visit: No (2) Opioid dependence on agonist therapy Current Visit: No (3) Nicotine dependence Current Visit: No Qualifiers: Nicotine product type: cigarettes Substance use status: uncomplicated Qualified Code(s): F17.210 - Nicotine dependence, cigarettes, uncomplicated (4) Anxiety and depression Current Visit: No (5) Spontaneous pneumothorax Current Visit: No (6) S/P angioplasty with stent Current Visit: No (7) CAD (coronary artery disease) Current Visit: No Qualifiers: Coronary Disease-Associated Artery/Lesion type: [place] artery [place] vs. transplanted heart: [place] heart Associated angina: angina presence unspecified Qualified Code(s): I25.10 - Atherosclerotic heart disease of [place] coronary artery without angina pectoris (8) HTN (hypertension) Current Visit: Yes Initial treatment plan: 1) Discontinue Paxil 20 mg po daily. 2) Start Paxil 30 mg po daily. 3) Monitor progress
[2016-06-14] MEDS: THIAMINE HCL 100 MG TABLET (FP) PO SCH (21:42)
[2016-06-14] MEDS: ATORVASTATIN CA 40 MG TABLET (FP) PO SCH (21:43)
[2016-06-14] MEDS: traZODone HCL 50 MG TABLET (FP) PO SCH (21:43)
[2016-06-14] MEDS: IBUPROFEN 400 MG TABLET (FP) PO PRN (21:45)
[2016-06-15] MEDS: TETRAHYDROZOLINE HCL 1 DROP DROPS OU SCH ×3 (00:01→09:51)
[2016-06-15] MEDS ORDERED: METHADONE HCL 5 MG TABLET ONE (04:14)
[2016-06-15] MEDS ORDERED: METHADONE HCL 10 MG TABLET ONE (04:14)
[2016-06-15] MEDS ORDERED: METHADONE HCL 10 MG TABLET PO SCH (06:00)
[2016-06-15] MEDS: METHADONE 10 MG, METHADONE 5 MG PO SCH (06:06)
[2016-06-15] MEDS ORDERED: PT OWN MED DRAWER 7, Y5N ONE ×2 (09:10→20:09)
[2016-06-15] MEDS: METOPROLOL TARTRATE 25 MG TABLET (FP) PO SCH ×2 (09:47→21:34)
[2016-06-15] MEDS: PARoxetine HCL 10 MG TABLET (FP) PO SCH (09:47)
[2016-06-15] MEDS: RANITIDINE HCL 150 MG TABLET (FP) PO SCH (09:47)
[2016-06-15] MEDS: PRENATAL VITAMINS W/ FOLIC ACID TABLET (FP) PO SCH (09:47)
[2016-06-15] MEDS: ASPIRIN 81 MG CHEWABLE TABLETS PO SCH (09:47)
[2016-06-15] MEDS: LISINOPRIL 5 MG TABLET (FP) PO SCH (09:47)
[2016-06-15] MEDS: PRASUGREL HCL 10 MG TAB PO SCH (09:48)
[2016-06-15] MEDS: NICOTINE 21 MG/24 HOURS TOPICAL PATCH TD SCH (09:50)
[2016-06-15] MEDS: TETRAHYDROZOLINE HCL 1 DROP DROPS OU PRN (20:09)
[2016-06-15] MEDS: ATORVASTATIN CA 40 MG TABLET (FP) PO SCH (21:32)
[2016-06-15] MEDS: THIAMINE HCL 100 MG TABLET (FP) PO SCH (21:32)
[2016-06-15] MEDS: IBUPROFEN 400 MG TABLET (FP) PO PRN (21:33)
[2016-06-15] MEDS: traZODone HCL 50 MG TABLET (FP) PO SCH (21:34)
[2016-06-16] MEDS ORDERED: METHADONE HCL 10 MG TABLET ONE (04:06)
[2016-06-16] MEDS ORDERED: METHADONE HCL 5 MG TABLET ONE (04:07)
[2016-06-16] MEDS: METHADONE 10 MG, METHADONE 5 MG PO SCH (06:21)
[2016-06-16] MEDS ORDERED: PT OWN MED DRAWER 7, Y5N ONE ×3 (09:04→17:56)
[2016-06-16] MEDS: TETRAHYDROZOLINE HCL 1 DROP DROPS OU PRN ×2 (09:08→17:56)
[2016-06-16] MEDS: PARoxetine HCL 10 MG TABLET (FP) PO SCH (10:10)
[2016-06-16] MEDS: PRENATAL VITAMINS W/ FOLIC ACID TABLET (FP) PO SCH (10:10)
[2016-06-16] MEDS: METOPROLOL TARTRATE 25 MG TABLET (FP) PO SCH ×2 (10:10→22:04)
[2016-06-16] MEDS: RANITIDINE HCL 150 MG TABLET (FP) PO SCH (10:10)
[2016-06-16] MEDS: LISINOPRIL 5 MG TABLET (FP) PO SCH (10:11)
[2016-06-16] MEDS: NICOTINE 21 MG/24 HOURS TOPICAL PATCH TD SCH (10:11)
[2016-06-16] MEDS: ASPIRIN 81 MG CHEWABLE TABLETS PO SCH (10:11)
[2016-06-16] MEDS: PRASUGREL HCL 10 MG TAB PO SCH (10:11)
[2016-06-16] MEDS: IBUPROFEN 400 MG TABLET (FP) PO PRN (17:55)
[2016-06-16] MEDS: THIAMINE HCL 100 MG TABLET (FP) PO SCH (22:04)
[2016-06-16] MEDS: ATORVASTATIN CA 40 MG TABLET (FP) PO SCH (22:04)
[2016-06-16] MEDS: traZODone HCL 50 MG TABLET (FP) PO SCH (22:04)
[2016-06-17] MEDS ORDERED: METHADONE HCL 10 MG TABLET ONE (03:15)
[2016-06-17] MEDS ORDERED: METHADONE HCL 5 MG TABLET ONE (03:16)
[2016-06-17] MEDS: METHADONE 10 MG, METHADONE 5 MG PO SCH (06:13)
[2016-06-17] MEDS ORDERED: PT OWN MED DRAWER 7, Y5N ONE ×3 (08:52→18:48)
[2016-06-17] MEDS: TETRAHYDROZOLINE HCL 1 DROP DROPS OU PRN ×2 (09:02→18:48)
[2016-06-17] MEDS: PRASUGREL HCL 10 MG TAB PO SCH (09:03)
[2016-06-17] MEDS: METOPROLOL TARTRATE 25 MG TABLET (FP) PO SCH ×2 (09:03→22:48)
[2016-06-17] MEDS: ASPIRIN 81 MG CHEWABLE TABLETS PO SCH (09:03)
[2016-06-17] MEDS: NICOTINE 21 MG/24 HOURS TOPICAL PATCH TD SCH (09:03)
[2016-06-17] MEDS: PRENATAL VITAMINS W/ FOLIC ACID TABLET (FP) PO SCH (09:04)
[2016-06-17] MEDS: PARoxetine HCL 10 MG TABLET (FP) PO SCH (09:04)
[2016-06-17] MEDS: RANITIDINE HCL 150 MG TABLET (FP) PO SCH (09:05)
[2016-06-17] MEDS: LISINOPRIL 5 MG TABLET (FP) PO SCH (09:05)
[2016-06-17] MEDS: ATORVASTATIN CA 40 MG TABLET (FP) PO SCH (21:44)
[2016-06-17] MEDS: traZODone HCL 50 MG TABLET (FP) PO SCH (22:48)
[2016-06-17] MEDS: THIAMINE HCL 100 MG TABLET (FP) PO SCH (22:49)
[2016-06-18] MEDS ORDERED: METHADONE HCL 10 MG TABLET ONE (04:13)
[2016-06-18] MEDS ORDERED: METHADONE HCL 5 MG TABLET ONE (04:13)
[2016-06-18] MEDS: METHADONE 10 MG, METHADONE 5 MG PO SCH (06:27)
[2016-06-18] MEDS ORDERED: PT OWN MED DRAWER 7, Y5N ONE ×4 (08:53→17:40)
[2016-06-18] MEDS: TETRAHYDROZOLINE HCL 1 DROP DROPS OU PRN ×2 (08:58→17:39)
[2016-06-18] MEDS: ASPIRIN 81 MG CHEWABLE TABLETS PO SCH (10:18)
[2016-06-18] MEDS: PRENATAL VITAMINS W/ FOLIC ACID TABLET (FP) PO SCH (10:18)
[2016-06-18] MEDS: RANITIDINE HCL 150 MG TABLET (FP) PO SCH (10:18)
[2016-06-18] MEDS: LISINOPRIL 5 MG TABLET (FP) PO SCH (10:18)
[2016-06-18] MEDS: PRASUGREL HCL 10 MG TAB PO SCH (10:18)
[2016-06-18] MEDS: NICOTINE 21 MG/24 HOURS TOPICAL PATCH TD SCH (10:18)
[2016-06-18] MEDS: METOPROLOL TARTRATE 25 MG TABLET (FP) PO SCH ×2 (10:19→21:06)
[2016-06-18] MEDS: PARoxetine HCL 10 MG TABLET (FP) PO SCH (10:19)
[2016-06-18] MEDS: ATORVASTATIN CA 40 MG TABLET (FP) PO SCH (21:06)
[2016-06-18] MEDS: IBUPROFEN 400 MG TABLET (FP) PO PRN (21:07)
[2016-06-18] MEDS: traZODone HCL 50 MG TABLET (FP) PO SCH (23:44)
[2016-06-18] MEDS: THIAMINE HCL 100 MG TABLET (FP) PO SCH (23:45)
[2016-06-19] MEDS ORDERED: METHADONE HCL 10 MG TABLET ONE (04:05)
[2016-06-19] MEDS ORDERED: METHADONE HCL 5 MG TABLET ONE (04:06)
[2016-06-19] MEDS: METHADONE 10 MG, METHADONE 5 MG PO SCH (06:12)
[2016-06-19] MEDS ORDERED: PT OWN MED DRAWER 7, Y5N ONE ×2 (09:10→17:44)
[2016-06-19] MEDS: TETRAHYDROZOLINE HCL 1 DROP DROPS OU PRN ×2 (09:13→17:44)
[2016-06-19] MEDS: PRENATAL VITAMINS W/ FOLIC ACID TABLET (FP) PO SCH (10:09)
[2016-06-19] MEDS: PARoxetine HCL 10 MG TABLET (FP) PO SCH (10:09)
[2016-06-19] MEDS: ASPIRIN 81 MG CHEWABLE TABLETS PO SCH (10:09)
[2016-06-19] MEDS: RANITIDINE HCL 150 MG TABLET (FP) PO SCH (10:10)
[2016-06-19] MEDS: PRASUGREL HCL 10 MG TAB PO SCH (10:10)
[2016-06-19] MEDS: METOPROLOL TARTRATE 25 MG TABLET (FP) PO SCH ×2 (10:10→21:45)
[2016-06-19] MEDS: LISINOPRIL 5 MG TABLET (FP) PO SCH (10:10)
[2016-06-19] MEDS: NICOTINE 21 MG/24 HOURS TOPICAL PATCH TD SCH (10:11)
[2016-06-19] MEDS: ATORVASTATIN CA 40 MG TABLET (FP) PO SCH (21:45)
[2016-06-19] MEDS: THIAMINE HCL 100 MG TABLET (FP) PO SCH (21:46)
[2016-06-19] MEDS: traZODone HCL 50 MG TABLET (FP) PO SCH (21:46)
[2016-06-19] MEDS: IBUPROFEN 400 MG TABLET (FP) PO PRN (21:47)
[2016-06-20] MEDS ORDERED: METHADONE HCL 10 MG TABLET ONE (04:07)
[2016-06-20] MEDS ORDERED: METHADONE HCL 5 MG TABLET ONE (04:08)
[2016-06-20] MEDS: METHADONE 10 MG, METHADONE 5 MG PO SCH (06:23)
[2016-06-20] MEDS ORDERED: PT OWN MED DRAWER 7, Y5N ONE ×2 (08:57→10:33)
[2016-06-20] MEDS: ASPIRIN 81 MG CHEWABLE TABLETS PO SCH (10:29)
[2016-06-20] MEDS: PRENATAL VITAMINS W/ FOLIC ACID TABLET (FP) PO SCH (10:29)
[2016-06-20] MEDS: NICOTINE 21 MG/24 HOURS TOPICAL PATCH TD SCH (10:30)
[2016-06-20] MEDS: PRASUGREL HCL 10 MG TAB PO SCH (10:30)
[2016-06-20] MEDS: LISINOPRIL 5 MG TABLET (FP) PO SCH (10:30)
[2016-06-20] MEDS: RANITIDINE HCL 150 MG TABLET (FP) PO SCH (10:30)
[2016-06-20] MEDS: METOPROLOL TARTRATE 25 MG TABLET (FP) PO SCH ×2 (10:30→21:42)
[2016-06-20] MEDS: TETRAHYDROZOLINE HCL 1 DROP DROPS OU PRN ×2 (10:31→17:13)
[2016-06-20] MEDS: PARoxetine HCL 10 MG TABLET (FP) PO SCH (12:02)
[2016-06-20] MEDS: traZODone HCL 50 MG TABLET (FP) PO SCH (21:43)
[2016-06-20] MEDS: THIAMINE HCL 100 MG TABLET (FP) PO SCH (21:43)
[2016-06-20] MEDS: ATORVASTATIN CA 40 MG TABLET (FP) PO SCH (21:43)
[2016-06-20] MEDS: IBUPROFEN 400 MG TABLET (FP) PO PRN (21:45)
[2016-06-21] MEDS ORDERED: METHADONE HCL 5 MG TABLET ONE (03:51)
[2016-06-21] MEDS ORDERED: METHADONE HCL 10 MG TABLET ONE (03:51)
[2016-06-21] MEDS: METHADONE 10 MG, METHADONE 5 MG PO SCH (06:23)
[2016-06-21] MEDS: ASPIRIN 81 MG CHEWABLE TABLETS PO SCH (11:07)
[2016-06-21] MEDS: METOPROLOL TARTRATE 25 MG TABLET (FP) PO SCH ×2 (11:07→22:05)
[2016-06-21] MEDS: LISINOPRIL 5 MG TABLET (FP) PO SCH (11:08)
[2016-06-21] MEDS: NICOTINE 21 MG/24 HOURS TOPICAL PATCH TD SCH (11:08)
[2016-06-21] MEDS: PRENATAL VITAMINS W/ FOLIC ACID TABLET (FP) PO SCH (11:09)
[2016-06-21] MEDS: RANITIDINE HCL 150 MG TABLET (FP) PO SCH (11:09)
[2016-06-21] MEDS: PARoxetine HCL 10 MG TABLET (FP) PO SCH (11:09)
[2016-06-21] MEDS: PRASUGREL HCL 10 MG TAB PO SCH (11:11)
[2016-06-21] MEDS ORDERED: PT OWN MED DRAWER 7, Y5N ONE ×3 (11:11→17:07)
[2016-06-21] MEDS: TETRAHYDROZOLINE HCL 1 DROP DROPS OU PRN ×2 (11:12→17:05)
[2016-06-21] MEDS: THIAMINE HCL 100 MG TABLET (FP) PO SCH (21:44)
[2016-06-21] MEDS: traZODone HCL 50 MG TABLET (FP) PO SCH (21:45)
[2016-06-21] MEDS: ATORVASTATIN CA 40 MG TABLET (FP) PO SCH (21:45)
[2016-06-22] MEDS ORDERED: METHADONE HCL 5 MG TABLET ONE (04:06)
[2016-06-22] MEDS ORDERED: METHADONE HCL 10 MG TABLET ONE (04:06)
[2016-06-22] MEDS: METHADONE 10 MG, METHADONE 5 MG PO SCH (06:06)
[2016-06-22] MEDS: LISINOPRIL 5 MG TABLET (FP) PO SCH (10:12)
[2016-06-22] MEDS: METOPROLOL TARTRATE 25 MG TABLET (FP) PO SCH ×2 (10:12→21:30)
[2016-06-22] MEDS: PRASUGREL HCL 10 MG TAB PO SCH (10:12)
[2016-06-22] MEDS: PRENATAL VITAMINS W/ FOLIC ACID TABLET (FP) PO SCH (10:12)
[2016-06-22] MEDS: PARoxetine HCL 10 MG TABLET (FP) PO SCH (10:12)
[2016-06-22] MEDS: ASPIRIN 81 MG CHEWABLE TABLETS PO SCH (10:13)
[2016-06-22] MEDS: RANITIDINE HCL 150 MG TABLET (FP) PO SCH (10:13)
[2016-06-22] MEDS: NICOTINE 21 MG/24 HOURS TOPICAL PATCH TD SCH (10:13)
[2016-06-22] MEDS: TETRAHYDROZOLINE HCL 1 DROP DROPS OU PRN (10:14)
--- NOTE | 2016-06-22 18:06 | PN ---
Psychiatric Progress Note Vital Signs: Vital Signs Period Temp Pulse Resp BP Sys/Finn Pulse Ox Last 24 Hr 98.3 F 50-68 16-18 103-113/64-76 Date of Session: 06/22/16 Chief Complaint:: Psychiatrist Discharge Note HPI: Patient addressing Alcohol Dependence comorbid with Opoid Dependence on Agonist Therapy, Nicotine Dependence and Anxiety & Depression ROS: HTN, CAD were medically managed Current Medications: Active Medications Generic Name Dose Route Start Last Admin Trade Name Freq PRN Reason Stop Dose Admin Acetaminophen 650 mg 06/09/16 17:41 06/13/16 13:48 Tylenol - PO 650 mg Q4H PRN Administration FEVER OR PAIN Al Hydroxide/Mg Hydroxide 30 ml 06/09/16 17:41 Mylanta Oral Suspension - PO Q6H PRN DYSPEPSIA Aspirin 81 mg 06/10/16 10:00 06/22/16 10:13 Asa - PO 81 mg DAILY YUE Administration Atorvastatin Calcium 40 mg 06/09/16 22:00 06/21/16 21:45 Lipitor - PO 40 mg HS YUE Administration Diphenhydramine HCl 50 mg 06/09/16 17:41 Benadryl - PO HSMR1 PRN FOR ITCHING Eucalyptus/Menthol/Phenol/Sorbitol 1 each 06/09/16 17:41 Cepastat Lozenge - MM Q4H PRN SORE THROAT Guaifenesin 10 ml 06/09/16 17:41 Robitussin Dm - PO Q6H PRN COUGH Ibuprofen 400 mg 06/09/16 17:41 06/20/16 21:45 Motrin - PO 400 mg Q6H PRN Administration PAIN Lisinopril 5 mg 06/09/16 22:30 06/22/16 10:12 Prinivil PO 5 mg DAILY YUE Administration Loperamide HCl 4 mg 06/09/16 17:41 Imodium - PO Q6H PRN DIARRHEA Magnesium Hydroxide 30 ml 06/09/16 17:41 06/21/16 21:48 Milk Of Magnesia - PO 30 ml DAILY PRN Administration CONSTIPATION Methadone HCl 10 mg/ Methadone 15 mg 06/21/16 06:00 06/22/16 06:06 HCl 5 mg PO 15 mg DAILY@0600 YUE Administration Metoprolol Tartrate 25 mg 06/09/16 22:00 06/22/16 10:12 Lopressor - PO 25 mg BID YUE Administration Nicotine 21 mg 06/09/16 18:00 06/22/16 10:13 Nicoderm Patch - TD 21 mg DAILY YUE Administration Nicotine Polacrilex 4 mg 06/09/16 17:41 Nicorette Gum - BUC Q2H PRN NICOTINE REPLACEMENT RX Paroxetine HCl 30 mg 06/15/16 10:00 06/22/16 10:12 Paxil - PO 30 mg DAILY YUE Administration Prasugrel 10 mg 06/09/16 18:00 06/22/16 10:12 Effient - PO 10 mg DAILY YUE Administration Multivit/Folic Acid/Iron 1 tab 06/10/16 10:00 06/22/16 10:12 Vitamins (Sjr) - PO 1 tab DAILY YUE Administration Pseudoephedrine/Triprolidine 1 combo 06/09/16 17:41 Actifed - PO TID PRN NASAL CONGESTION Ranitidine HCl 150 mg 06/09/16 22:30 06/22/16 10:13 Zantac - PO 150 mg DAILY YUE Administration Tetrahydrozoline HCl 1 drop 06/15/16 12:11 06/22/16 10:14 Visine - OU 1 drop QID PRN Administration DRY SKIN Thiamine HCl 100 mg 06/09/16 22:00 06/21/16 21:44 Vitamin B1 - PO 100 mg HS YUE Administration Trazodone HCl 25 mg 06/10/16 22:00 06/21/16 21:45 Desyrel - PO Not Given HS YUE Current Side Effect: No Lab tests ordered: Yes Lab tests reviewed: Yes Provider note:: Patient will complete this program on 06/23/16. He has met his treatment goals and will continue to address his issues in outpatient treatment at [facility] in [place], [place]. He verbalized understanding the negative consequences of his addiction and from his participation in this program, he has learned the importance of establising a sober support network in order to maintain sobriety. He responded well to Paxil 30 mg po daily and Trazadone 25 mg po HS. Scripts for 30 days supply of these medications will be electronically transmitted to [facility] at [address] [place] [address]. He is stable for discharge on 06/23/16 Total face to face time:: 35 Mental Status Exam - Mental Status Exam Alert and Oriented to: Time, Place, Person Cognitive Function: Fair Patient Appearance: Well Groomed Mood: Hopeful, Euthymic Affect: Appropriate Patient Behavior: Cooperative Speech Pattern: Clear Voice Loudness: Normal Thought Process: Intact Thought Disorder: Not Present Hallucinations: Denies Suicidal Ideation: Denies Homicidal Ideation: Denies Insight/Judgement: Fair Sleep: Fair Appetite: Good Muscle strength/Tone: Normal Gait/Station: Normal Psychiatric Treatment Plan - Problem List (1) Alcohol dependence with uncomplicated withdrawal Current Visit: No (2) Opioid dependence on agonist therapy Current Visit: No (3) Nicotine dependence Current Visit: No Qualifiers: Nicotine product type: cigarettes Substance use status: uncomplicated Qualified Code(s): F17.210 - Nicotine dependence, cigarettes, uncomplicated (4) Anxiety and depression Current Visit: No (5) Spontaneous pneumothorax Current Visit: No (6) S/P angioplasty with stent Current Visit: No (7) CAD (coronary artery disease) Current Visit: No Qualifiers: Coronary Disease-Associated Artery/Lesion type: [place] artery [place] vs. transplanted heart: [place] heart Associated angina: angina presence unspecified Qualified Code(s): I25.10 - Atherosclerotic heart disease of [place] coronary artery without angina pectoris (8) HTN (hypertension) Current Visit: Yes Initial treatment plan: Patient will be discharged tomorrow and referred to [facility] in [place], [place] for outpatient treatment
[2016-06-22] MEDS: IBUPROFEN 400 MG TABLET (FP) PO PRN (21:29)
[2016-06-22] MEDS: THIAMINE HCL 100 MG TABLET (FP) PO SCH (21:30)
[2016-06-22] MEDS: traZODone HCL 50 MG TABLET (FP) PO SCH (21:30)
[2016-06-22] MEDS: ATORVASTATIN CA 40 MG TABLET (FP) PO SCH (21:30)
[2016-06-23] MEDS ORDERED: METHADONE HCL 10 MG TABLET ONE (06:14)
[2016-06-23] MEDS: METHADONE 10 MG, METHADONE 5 MG PO SCH (06:14)
[2016-06-23] MEDS ORDERED: METHADONE HCL 5 MG TABLET ONE (06:14)
[2016-06-23 06:47] VITALS: BP 110/65; PULSE 50; TEMP 97.6
[2016-06-23] MEDS: TETRAHYDROZOLINE HCL 1 DROP DROPS OU PRN ×2 (07:54→10:07)
[2016-06-23] MEDS ORDERED: PT OWN MED DRAWER 7, Y5N ONE (09:10)
[2016-06-23] MEDS: PRASUGREL HCL 10 MG TAB PO SCH (10:07)
[2016-06-23] MEDS: METOPROLOL TARTRATE 25 MG TABLET (FP) PO SCH (10:08)
[2016-06-23] MEDS: ASPIRIN 81 MG CHEWABLE TABLETS PO SCH (10:08)
[2016-06-23] MEDS: RANITIDINE HCL 150 MG TABLET (FP) PO SCH (10:08)
[2016-06-23] MEDS: PRENATAL VITAMINS W/ FOLIC ACID TABLET (FP) PO SCH (10:08)
[2016-06-23] MEDS: PARoxetine HCL 10 MG TABLET (FP) PO SCH (10:08)
[2016-06-23] MEDS: LISINOPRIL 5 MG TABLET (FP) PO SCH (10:08)
[2016-06-23] MEDS: NICOTINE 21 MG/24 HOURS TOPICAL PATCH TD SCH (10:09)
== END 2016-06-23 10:15 | disposition home or self-care (01) | DRG 772 ==
LOC: YASAS 13:58 → Y3W 18:38
PROVIDERS: ADMIT Psychiatry & Neurology Psychiatry; ATTEND Psychiatry & Neurology Psychiatry
PROC: HZ42ZZZ Group Counseling for Substance Abuse Treatment, Cognitive-Behavioral (ICD-10-PCS; principal; 2016-06-23)
DX: F11.20 Opioid dependence, uncomplicated (principal); F10.230 Alcohol dependence with withdrawal, uncomplicated; F17.210 Nicotine dependence, cigarettes, uncomplicated; F41.8 Other specified anxiety disorders; I25.10 Atherosclerotic heart disease of native coronary artery without angina pectoris; I10 Essential (primary) hypertension; Z98.61 Coronary angioplasty status